=== PATIENT | female | born 1955 | race Caucasian/White ===

== ENCOUNTER → 2018-01-23 | Outpatient (CLI) | payer MEDICARE, MEDICAID ==
[2016-09-12 08:39] VITALS: BMI 31.0
[~2018-01-23] MED LIST: ACE3 PO; ACE325 PO; ACET500T68 PO; AMA100 PO; AMAN100T4; AMAN100T4 PO; AMLO-99; AMLO-99 PO; ASC500 PO; ASCO-182; ASCO-182 PO; CIP500 PO; CLO5 PO; DEPAKOTE; DIV500 PO; DIVA-1; DIVA250T86; DIVA500T98 PO; DOC100 PO; FOL1 PO; FOLI-68 PO; HYDR-4225 PO; HYDROXYZ HCL; LOR5 PO; MAGN400T4 PO; MULT-1335 PO; MULT-1379 PO; MYLL PO; NICO-218 TD; OLAN15TA23; OLAN20TA17 PO; OLANZAPINE 30 MG; OXYC-865 PO; POTA20TA85 PO; PRAV20TA65 PO; PSYL1PAC23 PO; PSYL3.4P2 PO; THIA100T55 PO; THIA100T6 PO; TRIC15T TOP; [UNRECOGNIZED DRUG - OTHER]
--- NOTE | 2018-01-23 17:18 | RADIOLOGY IMAGING REPORT ---
FACILITY: [facility] PATIENT NAME: HEATHER OCHOA : [id number] MR: [id number] V: [id number] EXAM DATE: ORDERING PHYSICIAN: LISA MUHAMMAD TECHNOLOGIST: Erlinda Beltran PROCEDURE:BILATERAL DIGITAL SCREENING MAMMOGRAM WITH CAD ASSISTED INTERPRETATION & 3D TOMOSYNTHESIS COMPARISON:Prior mammograms 07/20/16, 11/18/14, 08/17/13, 05/12/12, 03/31/11 INDICATIONS:SCREENING FINDINGS: Moderately heterogeneous fibroglandular tissue is seen throughout the breasts. The parenchymal pattern has remained stable allowing for difference in mammographic technique & patient positioning. There is no evidence of malignant appearing mass, malignant appearing calcifications or other secondary sign of malignancy in either breast. DIAGNOSTIC CATEGORY 1--NEGATIVE. RECOMMENDATIONS: ROUTINE MAMMOGRAM AND CLINICAL EVALUATION. IMPRESSION: BIRADS 1: Negative No significant abnormality is seen Dictated by: Mallory Sibley M.D. on 01/23/2018 at 15:43 Transcribed by: GLORIA on 01/23/2018 at 15:53 Approved by: Mallory Sibley M.D. on 01/23/2018 at 17:17 [facility]
== END ==
LOC: MAMO 00:58
PROVIDERS: ATTEND Family Medicine
DX: Z12.31 Encounter for screening mammogram for malignant neoplasm of breast (principal)
CPT/HCPCS: 77063; 77067

== ENCOUNTER 2018-09-06 08:56 | Emergency (ER) | payer MEDICARE, MEDICAID ==
[2016-09-12 08:39] VITALS: Wt 78.0 kg
[~2018-09-06 08:56] MED LIST changes: +AMLO-113; +AMLO-113 PO; -AMLO-99; -AMLO-99 PO; +DIVA250T33; -DIVA250T86
[2018-09-06] MEDS ORDERED: PRAV20TA65 PO (09:18)
[2018-09-06] MEDS ORDERED: AMLO-113 PO (09:18)
--- NOTE | 2018-09-06 09:27 | ER Report ---
History and Physical Time Seen By MD: 09:20 Hx. of Stated Complaint: PATIENT IS HERE WITH HER [facility] WELLNESS PROVIDER. SHE REPORTS THAT SHE HAS NOT BEEN TAKING HER MEDS HPI/ROS CHIEF COMPLAINT: Psychosis HISTORY OF PRESENT ILLNESS: 63-year-old female known history of schizoaffective disorder comes emergency Department noncompliant with her medications are taken approximately 8 days she's delusional she's having visual and auditory hallucinations is willing to come in as a voluntary admission she is here with behavioral health and wellness she's not suicidal homicidal but she is clearly disabled gravely disabled and unable to care for herself at this time she normally does present in the circumstances a gets admitted gets her medications titrated patient has had no physical complaints and has no additional complaints noted REVIEW OF SYSTEMS: Respiratory: No cough, no dyspnea. Cardiovascular: No chest pain, no palpitations. Gastrointestinal: No vomiting, no abdominal pain. Musculoskeletal: No back pain. Remainder of the 14 system rev: Yes Allergies: Coded Allergies: Sulfa (Sulfonamide Antibiotics) (Verified Allergy, Mild, 02/01/17) codeine (Verified Allergy, Unknown, 02/01/17) itching Home Meds Reported Medications Pravastatin Sodium (PRAVACHOL) 20 Mg Tablet, 40 MG PO QDAY, TAB 09/06/18 Amlodipine Besylate (AMLODIPINE BESYLATE) 10 Mg Tablet, 1 TAB PO QDAY, TAB 09/06/18 Folic Acid (FOLIC ACID) 1 Mg Tablet, 1 MG PO QDAY, TAB 03/24/17 Amantadine Hcl (AMANTADINE) 100 Mg Tablet, 100 MG PO BID 09/28/15 Hydroxyzine Hcl (HYDROXYZINE HCL) 25 Mg Tablet, 25 MG PO QHS 09/28/15 Docusate Sodium (COLACE (OR EQUIV)) 100 Mg Cap, 100 MG PO TID, #30 1 Refill 04/17/12 Olanzapine (Zyprexa) 20 Mg Tablet, 20 MG PO QHS, 0 Refills 04/13/11 Discontinued Reported Medications Nicotine (NICODERM CQ) 1 Each Patch.td24, 14 MG TD QDAY 04/28/17 Psyllium Husk/Aspartame (METAMUCIL FIBER SINGLES PACKET) 3.4 Gm Powd.pack, 3.4 GM PO BID 04/28/17 Thiamine HCl (B-1) 100 Mg Tablet, 100 MG PO QDAY 03/24/17 Multivits,Th W-Fe,Other Min (THERA-M) 1 Each Tablet, 1 EACH PO QDAY 03/24/17 Magnesium Oxide (MAG-OXIDE) 400 Mg Tablet, 400 MG PO QDAY 03/24/17 Ascorbic Acid (VITAMIN C) 500 Mg Tablet, 500 MG PO DAILY 09/28/15 Divalproex Sodium (DEPAKOTE) 500 Mg Tablet.dr, 1000 MG PO QHS, TAB 09/28/15 Reviewed Nurses Notes: Yes Old Medical Records Reviewed: Yes Hx Smoking: Yes Smoking Status: Current: Every Day Smoker Exposure to Second Hand Smoke?: No Hx Substance Use Disorder: Yes Hx Alcohol Use: Yes Constitutional Vital Sign - Last 24 Hours 09/06/18 09:00 Resp 24 B/P (MAP) 147/89 Physical Exam General Appearance: The patient is alert, has no immediate need for airway protection and no current signs of toxicity. No apparent distress however random tangential thought Eyes: Pupils equal and round no injection. Respiratory: Chest is non tender, lungs are clear to auscultation. Cardiac: regular rate and rhythm [ ] Gastrointestinal: Abdomen is soft and non tender, no masses, bowel sounds normal. Musculoskeletal: Neck: Neck is supple and non tender. Extremities have full range of motion and are non tender. Skin: No rashes or lesions. Health examination patient is alert to person only patient is having visual and auditory hallucinations including paranoid type schizophrenic and delusional patterns able to be redirected DIFFERENTIAL DIAGNOSIS: After history and physical exam differential diagnosis was considered for schizoaffective disorder psychosis schizophrenia medication noncompliance Medical Decision Making Data Points Result Diagram: 09/06/18 1000 09/06/18 1000 Laboratory Hematology Test 09/06/18 10:00 Red Blood Count 4.43 M/uL (4.17-5.56) Mean Corpuscular Volume 97.8 fL (80.0-96.0) Mean Corpuscular Hemoglobin 32.8 pg (26.0-33.0) Mean Corpuscular Hemoglobin Concent 33.5 g/dL (32.0-36.0) Red Cell Distribution Width 13.7 % (11.5-14.5) Mean Platelet Volume 7.0 fL (7.2-11.1) Neutrophils (%) (Auto) 60.5 % (39.4-72.5) Lymphocytes (%) (Auto) 29.8 % (17.6-49.6) Monocytes (%) (Auto) 8.3 % (4.1-12.4) Eosinophils (%) (Auto) 0.3 % (0.4-6.7) Basophils (%) (Auto) 1.1 % (0.3-1.4) Nucleated RBC Relative Count (auto) 0.0 /100WBC Neutrophils # (Auto) 6.5 K/uL (2.0-7.4) Lymphocytes # (Auto) 3.2 K/uL (1.3-3.6) Monocytes # (Auto) 0.9 K/uL (0.3-1.0) Eosinophils # (Auto) 0.0 K/uL (0.0-0.5) Basophils # (Auto) 0.1 K/uL (0.0-0.1) Nucleated RBC Absolute Count (auto) 0.00 K/uL Peripheral Blood Smear No Y/N Sodium Level 141 mmol/L (137-145) Potassium Level 2.8 mmol/L (3.5-5.0) Chloride Level 100 mmol/L (98-107) Carbon Dioxide Level 27 mmol/L (22-31) Blood Urea Nitrogen 11 mg/dl (7-18) Creatinine 0.40 mg/dl (0.52-1.04) Glomerular Filtration Rate Calc > 60.0 Random Glucose 96 mg/dl (75-110) Calcium Level 9.7 mg/dl (8.4-10.2) Magnesium Level 1.4 mg/dl (1.7-2.2) Total Bilirubin 0.4 mg/dl (0.2-1.3) Aspartate Amino Transf (AST/SGOT) 31 U/L (0-35) Alanine Aminotransferase (ALT/SGPT) 34 U/L (0-56) Alkaline Phosphatase 98 U/L (0-126) Total Protein 7.2 g/dl (6.3-8.2) Albumin 4.2 g/dl (3.5-5.0) Salicylates Level < 10 mg/L Salicylate Last Dose Date unk Acetaminophen Level < 10 ug/ml Serum Alcohol < 10 mg/dl Chemistry Test 09/06/18 10:00 White Blood Count 10.7 k/uL (4.5-11.0) Red Blood Count 4.43 M/uL (4.17-5.56) Hemoglobin 14.5 g/dL (12.0-16.0) Hematocrit 43.3 % (34.0-47.0) Mean Corpuscular Volume 97.8 fL (80.0-96.0) Mean Corpuscular Hemoglobin 32.8 pg (26.0-33.0) Mean Corpuscular Hemoglobin Concent 33.5 g/dL (32.0-36.0) Red Cell Distribution Width 13.7 % (11.5-14.5) Platelet Count 265 K/uL (150-450) Mean Platelet Volume 7.0 fL (7.2-11.1) Neutrophils (%) (Auto) 60.5 % (39.4-72.5) Lymphocytes (%) (Auto) 29.8 % (17.6-49.6) Monocytes (%) (Auto) 8.3 % (4.1-12.4) Eosinophils (%) (Auto) 0.3 % (0.4-6.7) Basophils (%) (Auto) 1.1 % (0.3-1.4) Nucleated RBC Relative Count (auto) 0.0 /100WBC Neutrophils # (Auto) 6.5 K/uL (2.0-7.4) Lymphocytes # (Auto) 3.2 K/uL (1.3-3.6) Monocytes # (Auto) 0.9 K/uL (0.3-1.0) Eosinophils # (Auto) 0.0 K/uL (0.0-0.5) Basophils # (Auto) 0.1 K/uL (0.0-0.1) Nucleated RBC Absolute Count (auto) 0.00 K/uL Peripheral Blood Smear No Y/N Glomerular Filtration Rate Calc > 60.0 Calcium Level 9.7 mg/dl (8.4-10.2) Magnesium Level 1.4 mg/dl (1.7-2.2) Total Bilirubin 0.4 mg/dl (0.2-1.3) Aspartate Amino Transf (AST/SGOT) 31 U/L (0-35) Alanine Aminotransferase (ALT/SGPT) 34 U/L (0-56) Alkaline Phosphatase 98 U/L (0-126) Total Protein 7.2 g/dl (6.3-8.2) Albumin 4.2 g/dl (3.5-5.0) Salicylates Level < 10 mg/L Salicylate Last Dose Date unk Acetaminophen Level < 10 ug/ml Serum Alcohol < 10 mg/dl Toxicology Test 09/06/18 10:00 Salicylates Level < 10 mg/L Salicylate Last Dose Date unk Acetaminophen Level < 10 ug/ml Serum Alcohol < 10 mg/dl ED Course/Re-evaluation ED Course ED clinical course medical decision-making 63-year-old female history of schizophrenia and schizoaffective disorder and paranoid delusions comes emergency Department after being off her medications for approximately 8 days will be admitted today voluntarily to be at bedtime for medication evaluation while she was here she was evaluated for physical exam findings and blood work showed hypokalemia and this was replaced with by mouth EKG showed no significant abnormalities patient be admitted [facility] diagnosis medical noncompliance and schizophrenia Decision to Disposition Date: Sep 06, 2018 Decision to Disposition Time: 10:40 Depart Departure Latest Vital Signs Vital Signs Date Time Temp Pulse Resp B/P (MAP) Pulse Ox O2 Delivery O2 Flow Rate FiO2 09/06/18 09:00 24 147/89 Impression: Primary Impression: Schizoaffective disorder, bipolar type Condition: Improved Disposition: XFER TO [facility] Referrals: LISA MUHAMMAD MD (PCP) NEDA MTZ MD Sep 06, 2018 09:27
[2018-09-06 10:11] LABS: PLATELET COUNT, AUTOMATED 265 K/uL (150-450)
[2018-09-06] MEDS ORDERED: POTASSIUM CHL 20 MEQ TABCR PO ONE (10:25)
--- NOTE | 2018-09-06 10:49 | EKG ---
[facility] PATIENT NAME: HEATHER OCHOA : [id number] MR: [id number] V: [id number] EXAM DATE: ORDERING PHYSICIAN: NEDA MTZ TECHNOLOGIST: ANA Huynh Reason : PSYCH Blood Pressure : / mmHG Vent. Rate : 103 BPM Atrial Rate : 103 BPM P-R Int : 144 ms QRS Dur : 072 ms QT Int : 336 ms P-R-T Axes : 041 038 -20 degrees QTc Int : 440 ms Sinus tachycardia Artifact in several leads - repeat if needed Diffuse nonspecific ST-T findings raise concern for ischemia Abnormal ECG No previous ECGs available Confirmed by ROSSY REEVES ([id number]) on 09/06/2018 3:52:16 PM Referred By: Confirmed By:ROSSY REEVES
[2018-09-06] MEDS ORDERED: KCL/NS* 20 MEQ/1000 ML PREMIX 1,000 ML IV SCH (11:20)
[2018-09-06] MEDS ORDERED: MAGNESIUM SUL* 2 GM/50 ML IVPB 50 ML IVPB ONE (11:20)
[2018-09-06] MEDS ORDERED: KCL (*) 20 MEQ/100 ML PREMIX 100 ML IV ONE (11:30)
[2018-09-06] MEDS ORDERED: OLANZapine ZYDIS ODT 5MG TABDP PO ONE (12:00)
[2018-09-06 14:00] VITALS: BP 147/91
[2018-09-06] MEDS ORDERED: MAGN400T36 PO (15:18)
[2018-09-06] MEDS ORDERED: THIA100T62 PO (15:18)
[2018-09-06] MEDS ORDERED: TRIA15CR40 TP (15:18)
[2018-09-06] MEDS ORDERED: DIVA-1 PO (15:18)
== END 2018-09-06 14:28 ==
LOC: ER 09:06
DX: F25.0 Schizoaffective disorder, bipolar type (principal)
CPT/HCPCS: 36415; 80305; 81001; 81025; 83735; 84443; 84484; 85025; 93005; 96365; 96366; 96367; A9270; G0480; J3475; J3480; 80320; 80329; 82040; 82247; 82310; 82374; 82435; 82565; 82947; 84075; 84132; 84155; 84295; 84450; 84460; 84520

== ENCOUNTER 2018-09-06 14:20 | Inpatient (IN) | payer MEDICARE, MEDICAID ==
[2016-09-12 08:39] VITALS: Ht 152.4 cm; Wt 78.0 kg
[~2018-09-06] VITALS: Ht 152.4 cm; Wt 78.0 kg
[2018-09-06] MEDS ORDERED: MAG HYD/AL HYD/SIMETH 30ML UDC PO PRN (15:10)
[2018-09-06] MEDS ORDERED: MAGN400T36 PO (15:18)
[2018-09-06] MEDS ORDERED: DIVA-1 PO (15:18)
[2018-09-06] MEDS ORDERED: TRIA15CR40 TP (15:18)
[2018-09-06] MEDS ORDERED: THIA100T62 PO (15:18)
[2018-09-06 16:51] VITALS: BP 152/86
[2018-09-06] MEDS ORDERED: DIVALPROEX SOD ER 500 MG TABSR PO SCH (21:00)
[2018-09-06] MEDS ORDERED: OLANZapine 5 MG TAB PO SCH ×2 (21:00)
[2018-09-06] MEDS: hydrOXYzine PAMOATE 25 MG CAP PO SCH (21:04)
[2018-09-06] MEDS: AMANTADINE HCL 100 MG CAP PO SCH (21:05)
[2018-09-06] MEDS: DOCUSATE SODIUM 100 MG CAP PO SCH (21:07)
[2018-09-06] MEDS: PRAVASTATIN SOD 20 MG TAB PO SCH (21:08)
[2018-09-06] MEDS: [UNRECOGNIZED DRUG - OTHER] PO SCH (21:45)
[2018-09-07] MEDS ORDERED: OLANZapine ZYDIS ODT 5MG TABDP ONE (03:32)
[2018-09-07] MEDS ORDERED: OLANZapine ZYDIS ODT 5MG TABDP PO ONE (03:40)
[2018-09-07 06:35] VITALS: BP 160/95
[2018-09-07] MEDS: DOCUSATE SODIUM 100 MG CAP PO SCH ×3 (08:28→21:02)
[2018-09-07] MEDS: [UNRECOGNIZED DRUG - OTHER] PO SCH (08:28)
[2018-09-07] MEDS: FOLIC ACID 1 MG TAB PO SCH (08:29)
[2018-09-07] MEDS: MAGNESIUM OXIDE 400 MG TAB PO SCH (08:29)
[2018-09-07] MEDS: POTASSIUM CHL 20 MEQ TABCR PO SCH (08:29)
[2018-09-07] MEDS: amLODIPine BESYL(*) 5 MG TAB PO SCH (08:30)
[2018-09-07] MEDS: AMANTADINE HCL 100 MG CAP PO SCH ×2 (08:30→21:01)
[2018-09-07] MEDS: THIAMINE HCL 100 MG TAB PO SCH (08:30)
[2018-09-07] MEDS: MULTIVITAMINS PO SCH (08:30)
[2018-09-07 13:12] VITALS: BP 122/80
--- NOTE | 2018-09-07 14:25 | EKG ---
FACILITY: [facility] [place] PATIENT NAME: HEATHER OCHOA : [id number] MR: [id number] V: [id number] EXAM DATE: ORDERING PHYSICIAN: ROBIN LEON TECHNOLOGIST: Test Reason : Blood Pressure : / mmHG Vent. Rate : 097 BPM Atrial Rate : 097 BPM P-R Int : 118 ms QRS Dur : 092 ms QT Int : 342 ms P-R-T Axes : 066 063 -32 degrees QTc Int : 434 ms Normal sinus rhythm Nonspecific ST and T wave abnormality Abnormal ECG When compared with ECG of 06-SEP-2018 10:19, No significant change was found Confirmed by LISA WILSON ([id number]) on 09/07/2018 6:08:47 PM Referred By: Confirmed By:LISA WILSON
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
[2018-09-07] MEDS ORDERED: OLANZapine 5 MG TAB PO SCH (21:00)
[2018-09-07] MEDS: DIVALPROEX SOD ER 500 MG TABSR PO SCH (21:00)
[2018-09-07] MEDS: hydrOXYzine PAMOATE 25 MG CAP PO SCH (21:01)
[2018-09-07] MEDS: PRAVASTATIN SOD 20 MG TAB PO SCH (21:01)
[2018-09-07 21:47] VITALS: BP 139/92
[2018-09-08 06:18] VITALS: BP 106/60
[2018-09-08] MEDS: FOLIC ACID 1 MG TAB PO SCH (07:59)
[2018-09-08] MEDS: DOCUSATE SODIUM 100 MG CAP PO SCH ×3 (07:59→21:03)
[2018-09-08 08:00] VITALS: BP 106/66
[2018-09-08] MEDS: AMANTADINE HCL 100 MG CAP PO SCH ×2 (08:00→21:04)
[2018-09-08] MEDS: MAGNESIUM OXIDE 400 MG TAB PO SCH (08:00)
[2018-09-08] MEDS: POTASSIUM CHL 20 MEQ TABCR PO SCH (08:00)
[2018-09-08] MEDS: MULTIVITAMINS PO SCH (08:01)
[2018-09-08] MEDS: THIAMINE HCL 100 MG TAB PO SCH (08:01)
[2018-09-08] MEDS: amLODIPine BESYL(*) 5 MG TAB PO SCH (08:19)
--- NOTE | 2018-09-08 08:27 | BHS Progress Note ---
BHS - Subjective Progress Notes Subjective Patient very cooperative today, with some complaints of constipation today, notably patient reports she is hungry, and her appetite is good. Patient reporting her "breakfast was good" and accurately reporting what she ate. Patient communicating well, and much clearer to follow topic today. Patient had no problems swallowing medication last night or this AM. Will monitor labs again in the AM concerning electrolyte abnormalities upon admission. Will continue current medication regimen and start planning for discharge back to [facility] soon. Suicidal Ideation: None Homicidal Ideation: None S - Objective Physical Exam Vital Signs Vital Signs Date Time Temp Pulse Resp B/P (MAP) Pulse Ox O2 Delivery O2 Flow Rate FiO2 09/08/18 06:18 98.1 85 106/60 (75) 89 Room Air 09/07/18 06:35 16 09/06/18 19:19 2.0 Hematology Test 09/06/18 19:05 09/07/18 10:45 Troponin I < 0.012 ng/ml Valproic Acid (Depakene) Level < 10.0 ug/ml Sodium Level 139 mmol/L (137-145) Potassium Level 3.5 mmol/L (3.5-5.0) Chloride Level 104 mmol/L (98-107) Carbon Dioxide Level 27 mmol/L (22-31) Blood Urea Nitrogen 8 mg/dl (7-18) Creatinine 0.40 mg/dl (0.52-1.04) Glomerular Filtration Rate Calc > 60.0 Random Glucose 86 mg/dl (75-110) Calcium Level 9.0 mg/dl (8.4-10.2) Magnesium Level 1.7 mg/dl (1.7-2.2) Total Bilirubin 0.4 mg/dl (0.2-1.3) Aspartate Amino Transf (AST/SGOT) 37 U/L (0-35) Alanine Aminotransferase (ALT/SGPT) 21 U/L (0-56) Alkaline Phosphatase 82 U/L (0-126) Total Protein 6.2 g/dl (6.3-8.2) Albumin 3.5 g/dl (3.5-5.0) Chemistry Test 09/06/18 19:05 09/07/18 10:45 Troponin I < 0.012 ng/ml Valproic Acid (Depakene) Level < 10.0 ug/ml Glomerular Filtration Rate Calc > 60.0 Calcium Level 9.0 mg/dl (8.4-10.2) Magnesium Level 1.7 mg/dl (1.7-2.2) Total Bilirubin 0.4 mg/dl (0.2-1.3) Aspartate Amino Transf (AST/SGOT) 37 U/L (0-35) Alanine Aminotransferase (ALT/SGPT) 21 U/L (0-56) Alkaline Phosphatase 82 U/L (0-126) Total Protein 6.2 g/dl (6.3-8.2) Albumin 3.5 g/dl (3.5-5.0) Toxicology Test 09/06/18 19:05 Valproic Acid (Depakene) Level < 10.0 ug/ml Muscle Strength and Tone: WNL Gait and Station: Steady [facility] Medications Reviewed: Side Effects, Benefits of Medication, Risks Allergies Reviewed: Yes Mental Status Exam General Appearance: Casual, Well Groomed, Good Eye Contact, Cooperative, Polite, Good Interaction; No Unkept, No Tearful, No Psychomotor Agitation, No Psychomotor Retardation Speech: Clear (nearing baseline), Spontaneous, Normal Rate, Normal Rhythm, Normal Volume, Normal Tone; No Slurred, No Garbled, No Rambling, No Inappropriate Mood: Euthymic (stabilizing now, much less variable today) Affect: Full and Appropriate, Calm; No Sad, No Flat, No Withdrawn, No Tearful, No Anxious, No Agitated Thought Process: Goal Directed ("when am i leaving"??) Thought Content: No Suicidal Ideation, No Homicidal Ideation; Auditory Halllucinations (denies today), Visual Hallucinations (denies today); No Obsessions, No Compulsions Sensorium: Clear Cognition: Alert & Oriented-Person, Alert & Oriented-Place, Alert & Oriented- Time, Tatge-Sutrlhqb-Vdusbdikn (partially) Memory: Immediate, Recent, Remote Intelligence: Average Insight Judgment: Poor (limited due to illness, but improving and nearing baseline now) Result Diagram: 09/07/18 1045 [facility] Assessment and Plan [id number] Encounter Date: Sep 08, 2018 [id number]-[id number] Encounter Time: 08:15 [facility] Plan: Necessary Precautions, Individual/Group Therapy, Admin/Titrate Meds, Educate Patient Tobacco Medications: Not Appropriate Condition Multpiple Antipsychotics Used: No Problems: (1) Schizoaffective disorder, bipolar type Status: Chronic Condition 1. patient improving quickly after restarting historic medication regimen. 2. Lab work in AM, 3. start to plan for discharge back to [facility] apartments when full return to baseline is achieved. ROBIN LEON MD Sep 08, 2018 08:27
[2018-09-08 12:45] VITALS: BP 120/66
[2018-09-08] MEDS: DIVALPROEX SOD ER 500 MG TABSR PO SCH (21:01)
[2018-09-08] MEDS: PRAVASTATIN SOD 20 MG TAB PO SCH (21:02)
[2018-09-08] MEDS: OLANZapine 5 MG TAB PO SCH (21:03)
[2018-09-08] MEDS: hydrOXYzine PAMOATE 25 MG CAP PO SCH (21:04)
[2018-09-09 01:30] VITALS: BP 124/76
[2018-09-09 06:56] LABS: PLATELET COUNT, AUTOMATED 294 K/uL (150-450)
[2018-09-09] MEDS: DOCUSATE SODIUM 100 MG CAP PO SCH ×3 (08:09→21:58)
[2018-09-09] MEDS: FOLIC ACID 1 MG TAB PO SCH (08:09)
[2018-09-09] MEDS: amLODIPine BESYL(*) 5 MG TAB PO SCH (08:10)
[2018-09-09] MEDS: POTASSIUM CHL 20 MEQ TABCR PO SCH (08:10)
[2018-09-09] MEDS: MULTIVITAMINS PO SCH (08:10)
[2018-09-09] MEDS: THIAMINE HCL 100 MG TAB PO SCH (08:10)
[2018-09-09] MEDS: MAGNESIUM OXIDE 400 MG TAB PO SCH (08:10)
[2018-09-09] MEDS: AMANTADINE HCL 100 MG CAP PO SCH ×2 (08:10→21:58)
[2018-09-09] MEDS ORDERED: amLODIPine BESYL(*) 5 MG TAB PO SCH (09:00)
[2018-09-09] MEDS: ACETAMINOPHEN 325 MG TAB PO PRN ×2 (10:45→21:57)
[2018-09-09 13:20] VITALS: BP 118/72
--- NOTE | 2018-09-09 15:16 | BHS Progress Note ---
[facility] - Subjective Progress Notes Subjective Pt seen in conference room with team. Pt in good spirits, still somewhat loose in her associations, a bit labile, laughing at odd times, says she hears AH "of cooking sounds." Asked about command hallucinations she says, "Yes but I am pushing them away." Tolerated increased dose of zyprexa well last night, denies oversedation today. Says she slept well. No EPS nor ataxia noted. Appetite is good. If psychosis continues to remit she may be ready for tentative discharge Tuesday. Suicidal Ideation: None Homicidal Ideation: None [facility] - Objective Physical Exam Vital Signs Vital Signs 09/06/18 09/09/18 19:19 13:20 Temp 97.6 Pulse 102 Resp 16 B/P (MAP) 118/72 (87) Pulse Ox 93 O2 Delivery Room Air O2 Flow Rate 2.0 Muscle Strength and Tone: WNL Gait and Station: Steady [facility] Medications Reviewed: Side Effects, Benefits of Medication, Risks Allergies Reviewed: Yes Mental Status Exam General Appearance: Casual, Well Groomed, Good Eye Contact, Cooperative, Polite, Good Interaction; No Unkept, No Tearful, No Psychomotor Agitation, No Psychomotor Retardation Speech: Clear, Spontaneous, Normal Rate, Normal Rhythm, Normal Volume, Normal Tone; No Slurred, No Garbled, No Rambling, No Inappropriate Mood: Hyperthymic (laughing at odd times) Affect: No Full and Appropriate, No Calm, No Sad, No Neutral, No Flat, No Withdrawn, No Tearful, No Anxious, No Agitated; Other (labile. Not agitated.) Thought Process: Other (circumstantial to tangential) Thought Content: No Suicidal Ideation, No Homicidal Ideation; Delusions, Auditory Halllucinations (acknowledges AH but "pushes them away"), Visual Hallucinations (denies today); No Thought Broadcasting, No Ideas of Reference, No Obsessions, No Compulsions, No Other Sensorium: Clear Cognition: Alert & Oriented-Person, Alert & Oriented-Place, Alert & Oriented- Time, Yiict-Rcuthhbt-Wobhuntmk (partially) Memory: Immediate, Recent, Remote Intelligence: Average Insight Judgment: Poor (limited due to illness, but improving and nearing baseline now) Result Diagram: 09/09/1845 09/09/18644 [facility] Assessment and Plan [id number] Encounter Date: Sep 09, 2018 [id number] Encounter Time: 09:30 [facility] Plan: Necessary Precautions, Individual/Group Therapy, Admin/Titrate Meds, Educate Patient Tobacco Medications: Not Appropriate Condition Multpiple Antipsychotics Used: No Problems: (1) Schizoaffective disorder, bipolar type Status: Chronic GEOVANNI SHABAZZ MD Sep 09, 2018 15:16
[2018-09-09 18:34] VITALS: BP 132/78
[2018-09-09] MEDS: PRAVASTATIN SOD 20 MG TAB PO SCH (21:57)
[2018-09-09] MEDS: hydrOXYzine PAMOATE 25 MG CAP PO SCH (21:57)
[2018-09-09] MEDS: OLANZapine 5 MG TAB PO SCH (21:58)
[2018-09-09] MEDS: DIVALPROEX SOD ER 500 MG TABSR PO SCH (21:59)
[2018-09-10 01:00] VITALS: BP 112/78
[2018-09-10] MEDS: MULTIVITAMINS PO SCH (08:33)
[2018-09-10] MEDS: POTASSIUM CHL 20 MEQ TABCR PO SCH (08:33)
[2018-09-10] MEDS: MAGNESIUM OXIDE 400 MG TAB PO SCH (08:34)
[2018-09-10] MEDS: DOCUSATE SODIUM 100 MG CAP PO SCH ×3 (08:34→22:20)
[2018-09-10] MEDS: AMANTADINE HCL 100 MG CAP PO SCH ×2 (08:34→22:20)
[2018-09-10] MEDS: FOLIC ACID 1 MG TAB PO SCH (08:34)
[2018-09-10] MEDS: THIAMINE HCL 100 MG TAB PO SCH (08:34)
[2018-09-10] MEDS: amLODIPine BESYL(*) 5 MG TAB PO SCH (08:34)
[2018-09-10] MEDS ORDERED: MAGNESIUM HYDROXIDE* 30ML UDCP PO ONE (09:30)
[2018-09-10] MEDS: ACETAMINOPHEN 325 MG TAB PO PRN (13:33)
[2018-09-10 14:41] VITALS: BP 136/76
--- NOTE | 2018-09-10 16:27 | BHS Progress Note ---
[facility] - Subjective Progress Notes Subjective Pt seen in conference room. She is still pretty tangential, with labile affect; she will say something to herself and then start laughing. Not always clear what she is talking about, but she is uniformly pleasant. Says she is sleeping well. Denies oversedation. Denies ataxia. Appetite is good-- drank some prune juice for mild constipation. Plan for tentative DC in am provided we can coordinate safe return to the [facility] with her outpatient team. Will check valproate level in am. Suicidal Ideation: None Homicidal Ideation: None [facility] - Objective Physical Exam Vital Signs Vital Signs 09/06/18 09/10/18 19:19 14:41 Temp 97.8 Pulse 94 Resp 18 B/P (MAP) 136/76 (96) Pulse Ox 93 O2 Delivery Room Air O2 Flow Rate 2.0 Muscle Strength and Tone: WNL Gait and Station: Steady [facility] Medications Reviewed: Side Effects, Benefits of Medication, Risks Allergies Reviewed: Yes Mental Status Exam General Appearance: Casual, Well Groomed, Good Eye Contact, Cooperative, Polite, Good Interaction; No Unkept, No Tearful, No Psychomotor Agitation, No Psychomotor Retardation Speech: Clear, Spontaneous, Normal Rate, Normal Rhythm, Normal Volume, Normal Tone; No Slurred, No Garbled, No Rambling, No Inappropriate Mood: Hyperthymic (laughing at odd times) Affect: No Full and Appropriate, No Calm, No Sad, No Neutral, No Flat, No Withdrawn, No Tearful, No Anxious, No Agitated; Other (labile. Not agitated.) Thought Process: Other (circumstantial to tangential) Thought Content: No Suicidal Ideation, No Homicidal Ideation; Delusions, Auditory Halllucinations (acknowledges AH but "pushes them away"), Visual Hallucinations (denies today); No Thought Broadcasting, No Ideas of Reference, No Obsessions, No Compulsions, No Other Sensorium: Clear Cognition: Alert & Oriented-Person, Alert & Oriented-Place, Alert & Oriented- Time, Rmjkl-Weryxfwg-Hwaepcayh (partially) Memory: Immediate, Recent, Remote Intelligence: Average Insight Judgment: Poor (limited due to illness, but improving and nearing baseline now) Result Diagram: 09/09/18 0645 09/09/18 0645 [facility] Assessment and Plan Bedf-he-Yzho Encounter Date: Sep 10, 2018 Vudg-ey-Kelt Encounter Time: 10:00 [facility] Plan: Necessary Precautions, Individual/Group Therapy, Admin/Titrate Meds, Educate Patient Tobacco Medications: Not Appropriate Condition Multpiple Antipsychotics Used: No Problems: (1) Schizoaffective disorder, bipolar type Status: Chronic GEOVANNI SHABAZZ MD Sep 10, 2018 16:27
[2018-09-10 21:14] VITALS: BP 110/66
[2018-09-10] MEDS: DIVALPROEX SOD ER 500 MG TABSR PO SCH (22:18)
[2018-09-10] MEDS: PRAVASTATIN SOD 20 MG TAB PO SCH (22:19)
[2018-09-10] MEDS: hydrOXYzine PAMOATE 25 MG CAP PO SCH (22:20)
[2018-09-10] MEDS: OLANZapine 5 MG TAB PO SCH (22:20)
[2018-09-11 02:47] VITALS: BP 123/83
[2018-09-11] MEDS: ACETAMINOPHEN 325 MG TAB PO PRN (04:55)
[2018-09-11 07:24] LABS: PLATELET COUNT, AUTOMATED 304 K/uL (150-450)
[2018-09-11] MEDS: MAGNESIUM OXIDE 400 MG TAB PO SCH (07:42)
[2018-09-11] MEDS: POTASSIUM CHL 20 MEQ TABCR PO SCH (07:42)
[2018-09-11] MEDS: THIAMINE HCL 100 MG TAB PO SCH (07:42)
[2018-09-11] MEDS: FOLIC ACID 1 MG TAB PO SCH (07:42)
[2018-09-11] MEDS: DOCUSATE SODIUM 100 MG CAP PO SCH (07:42)
[2018-09-11] MEDS: AMANTADINE HCL 100 MG CAP PO SCH (07:42)
[2018-09-11] MEDS: MULTIVITAMINS PO SCH (07:43)
[2018-09-11] MEDS: amLODIPine BESYL(*) 5 MG TAB PO SCH (07:43)
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
== END 2018-09-11 10:12 | disposition home or self-care (01) | DRG 885 ==
LOC: BHS 14:20
PROVIDERS: ADMIT Psychiatry & Neurology Psychiatry; ATTEND Psychiatry & Neurology Psychiatry
DX: F25.0 Schizoaffective disorder, bipolar type (principal); I10 Essential (primary) hypertension; K59.09 Other constipation; Z91.14 Patient's other noncompliance with medication regimen; Z89.511 Acquired absence of right leg below knee; E78.5 Hyperlipidemia, unspecified; Z91.5 Personal history of self-harm
CPT/HCPCS: 36415; 80164; 82040; 82247; 82310; 82374; 82435; 82565; 82947; 83735; 84075; 84132; 84155; 84295; 84450; 84460; 84484; 84520; 85025; 93005; G9017; Q0177

== ENCOUNTER → 2019-01-23 | Outpatient (REF) | payer MEDICARE, MEDICAID ==
[2016-09-12 08:39] VITALS: BMI 31.0
[~2019-01-23] MED LIST changes: -AMLO-113; -AMLO-113 PO; +AMLO-127; +AMLO-127 PO; +DIVA-1 PO; +MAGN400T36 PO; +THIA100T62 PO; +TRIA15CR40 TP
== END ==
LOC: ZZSENDIN 10:31
PROVIDERS: ATTEND Physician Assistant
DX: I10 Essential (primary) hypertension (principal)
CPT/HCPCS: 82040; 82247; 82310; 82374; 82435; 82565; 82947; 84075; 84132; 84155; 84295; 84450; 84460; 84520

== ENCOUNTER → 2019-02-15 | Outpatient (CLI) | payer MEDICARE, MEDICAID ==
[2016-09-12 08:39] VITALS: BMI 31.0
--- NOTE | 2019-02-15 15:06 | RADIOLOGY IMAGING REPORT ---
FACILITY: [facility] PATIENT NAME: HEATHER OCHOA : [id number] MR: [id number] V: [id number] EXAM DATE: ORDERING PHYSICIAN: YANI PATEL TECHNOLOGIST: Erlinda Beltran PROCEDURE:BILATERAL DIGITAL SCREENING MAMMOGRAM WITH CAD ASSISTED INTERPRETATION & 3D TOMOSYNTHESIS COMPARISON:Prior mammograms dated 01/23/18, 07/20/16, 11/18/14, 08/17/13, 05/12/12 INDICATIONS:screening FINDINGS: The breasts are heterogeneously dense which can obscure small masses. The parenchymal pattern has remained stable when allowing for difference in mammographic technique & patient positioning. DIAGNOSTIC CATEGORY 1--NEGATIVE. RECOMMENDATIONS: ROUTINE MAMMOGRAM AND CLINICAL EVALUATION. IMPRESSION: BIRADS 1: Negative. No significant abnormality is seen. Dictated by: Mallory Sibley M.D. on 02/15/2019 at 11:17 Transcribed by: CAROLE on 02/15/2019 at 14:27 Approved by: Mallory Sibley M.D. on 02/15/2019 at 15:05 [facility]
== END ==
LOC: MAMO 00:25
PROVIDERS: ATTEND Physician Assistant
DX: Z12.31 Encounter for screening mammogram for malignant neoplasm of breast (principal)
CPT/HCPCS: 77063; 77067